=== PATIENT | male | born 1965 | race Asian ===

== ENCOUNTER 2017-11-15 14:25 | Emergency (ER) | payer OTHER ==
[~2017-11-15] VITALS: Ht 172.7 cm; Wt 74.8 kg
[2017-11-15 14:43] VITALS: BP_SYST 151
[2017-11-15 16:33] VITALS: BP_SYST 151
== END 2017-11-15 16:36 | disposition home or self-care (01) ==
LOC: SED 14:25
DX: S09.90XA Unspecified injury of head, initial encounter (principal); E78.5 Hyperlipidemia, unspecified; Z88.0 Allergy status to penicillin; W22.8XXA Striking against or struck by other objects, initial encounter; Y93.89 Activity, other specified; Y92.481 Parking lot as the place of occurrence of the external cause; Y99.8 Other external cause status
CPT/HCPCS: 70450-TC; 99284